=== PATIENT | female | born 1985 | race Caucasian/White ===

== ENCOUNTER 2016-05-15 12:40 | Emergency (ER) | payer MEDICAID ==
[2016-05-15] MEDS ORDERED: ACETAMINOPHEN 500 MG TABLET PO ONE (13:02)
[2016-05-15] MEDS ORDERED: IBUPROFEN 600 MG TABLET PO ONE (13:02)
[2016-05-15] MEDS ORDERED: DEXAMETHASONE SOD PHOSPHATE 10MG/ML VIAL PO ONE (13:02)
[2016-05-15] MEDS ORDERED: CLINDAMYCIN 150 MG CAP PO ONE (13:02)
--- NOTE | 2016-05-15 13:08 | Emergency Department Record ---
History of Present Illness - General Chief complaint: ENT Stated complaint: SORE THROAT Time Seen by Provider: 05/15/16 13:02 Source: Patient, Family Mode of Arrival: Ambulatory Limitations: No limitations - History of Present Illness Initial comments: 30 yo female presents with a sore throat and fever that started last night. Her child has similar symptoms. No nausea, vomiting or diarrhea. No rash. No changes in her voice. She does have pain with swallowing. She feels achy as well. MD complaint: Sore throat Onset/Timin -: Days(s) Location: Throat Severity scale (1-10): 7 Quality: Aching Improves with: None Worsens with: None - Related Data Home Medications Medication Instructions Recorded Confirmed Last Taken Ibuprofen [Motrin] 600 mg PO Q8H PRN 05/26/14 05/15/16 05/14/16 Escitalopram Oxalate [Lexapro] 20 mg PO DAILY 05/15/16 05/15/16 05/14/16 Previous Rx's Medication Instructions Recorded Clindamycin HCl [Cleocin HCl] 300 mg PO QID #28 capsule 05/15/16 Allergies Allergy/AdvReac Type Severity Reaction Status Date / Time No Known Drug Allergies Allergy Verified 05/26/14 19:28 Travel Screening - Travel/Exposure Within Last 30 Days Have you traveled within the last 30 days?: No - Travel/Exposure Within Last Year Have you traveled outside the [place] in the last year?: No - Additonal Travel Details Have you been exposed to anyone with a communicable illness?: No - Travel Symptoms Symptom Screening: None Review of Systems Constitutional: Reports: Fever, Malaise. Denies: Weakness Eyes: Denies: Eye discharge, Eye pain, Photophobia, Vision change ENT: Reports: As per HPI, Throat pain. Denies: Congestion, Dental pain, Ear pain Respiratory: Denies: Cough, Dyspnea, Wheezes Cardiovascular: Denies: Chest pain, Palpitations, Syncope Endocrine: Denies: Fatigue Gastrointestinal: Denies: Abdominal pain, Diarrhea, Nausea, Vomiting Genitourinary: Denies: Dysuria Musculoskeletal: Denies: Arthralgia, Back pain, Myalgia, Neck pain Skin: Denies: Bruising, Change in color, Rash Neurological: Denies: Headache Psychiatric: Denies: Anxiety Hematological/Lymphatic: Denies: Blood Clots, Easy bleeding, Easy bruising, Swollen glands Past Medical History - SOCIAL HISTORY Smoking Status: Current every day smoker Alcohol Use: None Drug Use: None - RESPIRATORY Hx Respiratory Disorders: No - CARDIOVASCULAR Hx Cardio Disorders: Yes Hx Irregular Heartbeat: Yes - NEURO Hx Neuro Disorders: No - GI Hx GI Disorders: Yes Hx Abdominal Pain: Yes Hx Nausea/Vomiting: Yes - Hx Genitourinary Disorders: No - ENDOCRINE Hx Endocrine Disorders: No - MUSCULOSKELETAL Hx Musculoskeletal Disorders: No - PSYCH Hx Psych Problems: Yes Hx Anxiety: Yes Hx Depression: Yes - HEMATOLOGY/ONCOLOGY Hx Hematology/Oncology Disorders: No Family Medical History Any Significant Family History?: No Physical Exam - General General Appearance: Alert, Oriented x3, Cooperative, No acute distress, Other ( Clear voice) Limitations: No limitations - Head Head exam: Normal inspection - Eye Eye exam: Normal appearance, PERRL. negative: Conjunctival injection, Periorbital swelling - ENT ENT exam: Mucous membranes moist, Normal external ear exam, TM's normal bilaterally. negative: Normal exam, Mucous membranes dry, Normal orophraynx Ear exam: Normal external inspection. negative: External canal tenderness Nasal Exam: Normal inspection. negative: Discharge, Sinus tenderness Mouth exam: Normal external inspection, Tongue normal Teeth exam: Normal inspection. negative: Dental caries Throat exam: Tonsillar erythema, Tonsillomegaly, Tonsillar exudate, Other (MIld tonsillary swelling bilaterally, no asymmetry or soft tissue mass or shift. No sign of peritonsillar abscess, mild exudate bilateral). negative: Normal inspection, R peritonsillar mass, L peritonsillar mass - Neck Neck exam: Normal inspection, Lymphadenopathy (mild anterior cervical lymphadenopathy, soft and mobile), Tenderness. negative: Meningismus - Respiratory Respiratory exam: Normal lung sounds bilaterally. negative: Respiratory distress - Cardiovascular Cardiovascular Exam: Regular rate, Normal rhythm, Normal heart sounds - GI/Abdominal GI/Abdominal exam: Soft. negative: Distended, Tenderness - Rectal Rectal exam: Deferred - exam: Deferred - Extremities Extremities exam: Normal inspection, Full ROM, Normal capillary refill. negative: Pedal edema, Tenderness - Back Back exam: Reports: Normal inspection, Full ROM. Denies: Muscle spasm, Rash noted, Tenderness - Neurological Neurological exam: Alert, Normal gait, Oriented X3, Reflexes normal - Psychiatric Psychiatric exam: Normal affect, Normal mood - Skin Skin exam: Dry, Intact, Normal color, Warm Course Vital Signs 05/15/16 05/15/16 12:44 13:02 Temperature 102.4 F H Pulse Rate 107 H Respiratory 20 Rate Blood Pressure 126/78 Pulse Ox 98 - Reevaluation(s) Reevaluation #1: The patient was seen and examined She has bilateral tonsilar enlargement (mild) with exudates. No mass or signs of abscess. Normal uvula. tonsils not near uvula Clinically consistent with tonsillitis Decadron, Antibiotic, and NSAID ordered 05/15/16 13:07 Reevaluation #2: Strep Positive 05/15/16 13:51 Reevaluation #3: At DC the patient is feeling much improved We discussed the results and follow up We discussed reasons for immediate return to the ED 05/15/16 14:02 Disposition Disposition: Discharge Clinical Impression: Tonsillitis with exudate Disposition: Home, Self-Care Condition: (1) Good Instructions: Strep Throat (ED) Additional Instructions: Rest and stay well hydrated Return if worse, short of breath, concerns about dehydration. Call your doctor to schedule a recheck this week in 2-3 days, return to the ER immediately if worse or not improving. Prescriptions: Clindamycin HCl [Cleocin HCl] 300 mg PO QID #28 capsule Forms: Patient Portal Access Time of Disposition: 13:52
== END 2016-05-15 14:10 | disposition home or self-care (01) ==
LOC: ER 12:40
DX: J03.00 Acute streptococcal tonsillitis, unspecified (principal); F17.210 Nicotine dependence, cigarettes, uncomplicated
CPT/HCPCS: 87880; 99283